=== PATIENT | male | born 1995 | race American Indian/Alaskan Native ===

== ENCOUNTER 2016-12-05 13:58 | Emergency (ER) | payer OTHER ==
[2016-12-05] MEDS ORDERED: ROCEPHIN IM ONE (16:14)
[2016-12-05] MEDS ORDERED: XYLOCAINE 1% MPF 5 mL INFILTRATI ONE (16:14)
[2016-12-05] MEDS ORDERED: ZITHROMAX PO ONE (16:14)
--- NOTE | 2016-12-05 16:19 | Emergency Department Report ---
ED Male HPI - General Chief complaint: Urogenital-Male Stated complaint: STD Time Seen by Provider: 12/05/16 16:00 Source: patient Mode of arrival: Ambulatory Limitations: No Limitations - History of Present Illness Initial comments: Patient comes into the ER today with complaints of penile discharge and dysuria for the past 3-4 days. Patient does state that he is sexually active but denies any obviously known exposure. Patient does state that he has had this before and he thinks it is an STD. Any abdominal pain, vomiting, diarrhea, fever. MD Complaint: penile discharge - Related Data Home Medications Medication Instructions Recorded Confirmed Last Taken No Known Home Medications [No 12/05/16 12/05/16 Unknown Reported Home Medications] Allergies Allergy/AdvReac Type Severity Reaction Status Date / Time No Known Allergies Allergy Unverified 12/05/16 14:15 ED Review of Systems ROS: Stated complaint: STD Other details as noted in HPI Constitutional: denies: chills, fever Eyes: denies: eye pain, eye discharge, vision change ENT: denies: ear pain, throat pain Respiratory: denies: cough, shortness of breath, wheezing Cardiovascular: denies: chest pain, palpitations Endocrine: no symptoms reported Gastrointestinal: denies: abdominal pain, nausea, diarrhea Genitourinary: dysuria, discharge. denies: urgency, frequency, hematuria, testicular pain, testicular mass Musculoskeletal: denies: back pain, joint swelling, arthralgia Skin: denies: rash, lesions Neurological: denies: headache, weakness, paresthesias Psychiatric: denies: anxiety, depression Hematological/Lymphatic: denies: easy bleeding, easy bruising ED Past Medical Hx - Past Medical History Previous Medical History?: No - Surgical History Past Surgical History?: No - Social History Smoking Status: Current Every Day Smoker Substance Use Type: Alcohol, Marijuana - Medications Home Medications: Home Medications Medication Instructions Recorded Confirmed Last Taken Type No Known Home Medications [No 12/05/16 12/05/16 Unknown History Reported Home Medications] ED Physical Exam - General Limitations: No Limitations General appearance: alert, in no apparent distress - Head Head exam: Present: atraumatic, normocephalic - Eye Eye exam: Present: normal appearance - ENT ENT exam: Present: mucous membranes moist - Neck Neck exam: Present: normal inspection - Respiratory Respiratory exam: Present: normal lung sounds bilaterally. Absent: respiratory distress - Cardiovascular Cardiovascular Exam: Present: regular rate, normal rhythm. Absent: systolic murmur, diastolic murmur, rubs, gallop - GI/Abdominal GI/Abdominal exam: Present: soft, normal bowel sounds. Absent: distended, tenderness, guarding, rebound, rigid - Rectal Rectal exam: Present: deferred - exam: Present: urethral discharge. Absent: testicular tenderness, scrotal swelling - Extremities Exam Extremities exam: Present: normal inspection - Back Exam Back exam: Present: normal inspection - Neurological Exam Neurological exam: Present: alert, oriented X3 - Psychiatric Psychiatric exam: Present: normal affect, normal mood - Skin Skin exam: Present: warm, dry, intact, normal color. Absent: rash ED Course Vital Signs 12/05/16 14:16 Temperature 98.2 F Pulse Rate 62 Respiratory 20 Rate Blood Pressure 113/76 O2 Sat by Pulse 100 Oximetry ED Medical Decision Making - Medical Decision Making Patient is nontoxic and hemodynamically stable. Time I evaluated patient in the room, patient states that he is already voided and does not think he will be able to void for a while now. Based on the evaluation and symptoms, patient was given Rocephin 250 mg IM as well as Zithromax 1 g by mouth here in the ER for suspected STD. I have encouraged patient to notify anybody that he has been sexually active with his symptoms and her need for treatment as well. Patient is stable for discharge and is in agreement with treatment plan. Critical care attestation.: If time is entered above; I have spent that time in minutes in the direct care of this critically ill patient, excluding procedure time. ED Disposition Clinical Impression: Urethral discharge in male Disposition: DISCHARGED TO HOME OR SELFCARE Is pt being admited?: No Does the pt Need Aspirin: No Condition: Good Instructions: Nonspecific Urethritis in Men (ED) Referrals: PRIMARY CARE, [Primary Care Provider] - 3-5 Days Time of Disposition: 16:20
[2016-12-05 16:37] VITALS: BP 146/82
== END 2016-12-05 16:36 | disposition home or self-care (01) ==
LOC: ED 13:58
DX: R36.9 Urethral discharge, unspecified (principal); R30.0 Dysuria; F17.200 Nicotine dependence, unspecified, uncomplicated; F12.10 Cannabis abuse, uncomplicated
CPT/HCPCS: 96372; 99282; J0696